=== PATIENT | male | born 1970 | race Hispanic/Latino ===

== ENCOUNTER 2019-10-26 14:57 | Emergency (ER) | payer BC ==
--- OUTSIDE RECORDS SUMMARY | 2019-10-26 14:59 | XMS REPORT | Clinical Summary ---
:1970 Author Organization [facility] Address [address] [place] [id number] Care Team Providers Name Role Phone Asked, Pcp Primary Care Provider Unavailable Allergies No Known Allergies Medications Medication Sig Dispensed Refills Start Date End Date Status olmesartan 0 11/02/2017 Active (BENICAR) 40 MG tablet zolpidem (AMBIEN) 0 11/02/2017 A ctive 10 mg tablet MULTIVITAMIN ORAL Take by 0 Ac tive mouth. meloxicam (MOBIC) TAKE 1 30 tablet 2 11/09/2018 A ctive 15 mg TABLET BY tabletIndications: MOUTH EVERY Labral tear of DAY shoulder, left, initial encounter meloxicam (MOBIC) TAKE 1 30 tablet 1 06/17/2018 D iscontinued 15 mg TABLET BY 9 (Reorder) tabletIndications: MOUTH EVERY Labral tear of DAY shoulder, left, initial encounter Active Problems Problem Noted Date Impingement syndrome of left shoulder 11/30/2017 Overview: Added automatically from request for noelle humberto [id number] Glenoid labrum tear 11/30/2017 Overview: Added automatically from request for noelle humberto [id number] Encounters Date Type Specialty Care Team Description 11/09/2018 Refill Orthopedic Surgery Junior Donnelly MD La bral tear of shoulder, left, initial e ncounter after 10/25/2018 Family History Medical History Relation Name Comments Hypertension Father Hypertension Mother Relation Name Status Comments Father Alive Mother Other siblings Alive Social History Tobacco Use Types Packs/Day Years Used Date Never Smoker Smokeless Tobacco: Never Used Alcohol Use Drinks/Week oz/Week Comments Yes 5 Cans of beer Sex Assigned at Date Recorded Not on file Job Start Date Occupation Industry Not on file Not on file Not on file Travel History Travel Start Travel End No recent travel history available. Last Filed Vital Signs Not on file Plan of Treatment Health Maintenance Due Date Last Done Comments INFLUENZA VACCINE 11/07/2019 12/10/2017 Results Not on fileafter 10/25/2018 ([facility]) [place] [address] Advance Directives For more information, please contact: [phone] Type Date Recorded Patient [employer] Explanati on Advance Directives, Living Will 12/08/2017 9:24 AM and Medical Power of Director Workforce Management
[2019-10-26 15:50] LABS: Urine Blood 3+ (NEG); Urine Glucose NEGATIVE (NEG); Urine Protein NEGATIVE (NEG); Urine Specific Gravity 1.025 (1.005-1.030); Urine pH 5.5 (5.0-7.0)
[2019-10-26] MEDS ORDERED: ONDANSETRON 4 MG/2 ML VIAL ONE (15:56)
[2019-10-26] MEDS ORDERED: KETOROLAC 30 MG/ML INJ ONE (15:57)
[2019-10-26] MEDS ORDERED: NA CHLORIDE 0.9% 1,000 ML ONE (15:57)
[2019-10-26 16:16] LABS: Absolute Lymphocytes (CBC) 2.1 K/uL (0.7-4.9); Basophils % 0.2 % (0-1.3); Hematocrit 43.9 % (39.6-49.0); MPV 8.8 fL (7.6-11.3); RBC Red Blood Cell Count 4.71 M/uL (4.33-5.43)
[2019-10-26] MEDS ORDERED: CEFTRIAXONE/SWI 1gm 1 GM/10 ML SYR ONE (16:29)
--- NOTE | 2019-10-26 16:30 | RAD REPORT ---
EXAM DESCRIPTION: CT - Stone Protocol - 10/26/2019 4:12 pm CLINICAL HISTORY: ABD PAIN COMPARISON: Abdomen Pelvis W Contrast dated 06/03/2016 TECHNIQUE: Axial 3 mm thick images were obtained without oral or IV contrast. The uigpy-hd-pevr span s the entirety of the system including uppermost abdomen and lung bases. All CT scans are performed using dose optimization technique as appropriate and may include automated exposure control or mA/KV adjustment according to patient size. FINDINGS: Mild moderate dilatation of the left renal pelvis with mild dilatation of the left ureter. There is a 3 mm obstructing calculus at the UVJ. Patient has significant perinephric stranding. No o ther obstructing or nonobstructing calculi of either kidney or collecting system. No suspicious renal masses. Isodense masses and pyelonephritis are not excluded on a stone protocol CT scan. No signific ant adrenal finding. Urinary bladder is nearly fully contracted. No gross bladder abnormality seen. P rostate calcifications are present. Liver shows a mild diffuse fatty infiltration pattern with no focal lesion on noncontrast imaging. Sp phong and pancreas show no suspicious findings. Gallbladder is contracted. No biliary tree dilatation. Stones can be occult on CT imaging. No suspicious bowel findings. Appendectomy clips are present. No acute GI findings seen. No mass or bulky lymphadenopathy. Bilateral fat filled inguinal hernias are present. No free air or p neumatosis. Small fat only umbilical hernia present. No significant bony abnormality. Patient has advanced for age degenerative change at the L5-S1 disc l evel. Mild foraminal stenosis changes are present at this level. IMPRESSION: Aonb-rj-czewszdl left-sided hydronephrosis secondary to a 3 mm obstructing calculus at t he UVJ. Additional nonacute findings detailed in the report are similar to the comparison. Isodense masses and pyelonephritis are not excluded on stone protocol technique.
[2019-10-26 16:32] LABS: Bilirubin Direct 0.1 mg/dL (0-0.2); Bilirubin Total 0.5 mg/dL (0.2-1.0); Potassium 4.1 mmol/L (3.5-5.1); Protein, Total 7.2 g/dL (6.4-8.2)
--- NOTE | 2019-10-26 17:14 | EDPHYS ---
Physician Documentation [facility] Name: Stew Garcia Age: 49 yrs Sex: Male : 1970 Arrival Date: 10/26/2019 Time: 15:00 Bed 18 Private MD: TRANG Physician Manolo Yin HPI: 10/25 15:49 This 49 yrs old Male presents to ER via Ambulatory with complaints of Possible franklin Kidney Stone. 15:49 The patient complains of pain in the left low back and left mid back. The pain radiates franklin to the left low back and left mid back. Onset: The symptoms/episode began/occurred this morning. Modifying factors: The symptoms are alleviated by nothing. the symptoms are aggravated by nothing. The patient presents with pain that is acute. The symptoms are located in the left low back and left mid back. Onset: The symptoms/episode began/occurred this morning. Modifying factors: The patient symptoms are alleviated by nothing, the patient symptoms are aggravated by any movement. Historical: - Allergies: 15:20 No Known Allergies; ls4 - Home Meds: 15:20 Benicar Oral [Active]; ls4 - PMHx: 15:20 Hypertension; ls4 - PSHx: 15:20 None; ls4 - Immunization history:: Adult Immunizations up to date. - Social history:: Smoking status: Patient denies any tobacco usage or history of. - Family history:: not pertinent. ROS: 15:49 Constitutional: Negative for fever, chills, and weight loss, Eyes: Negative for injury, franklin pain, redness, and discharge, ENT: Negative for injury, pain, and discharge, Neck: Negative for injury, pain, and swelling, Cardiovascular: Negative for chest pain, palpitations, and edema, Respiratory: Negative for shortness of breath, cough, wheezing, and pleuritic chest pain, Back: Negative for injury and pain, : Negative for injury, bleeding, discharge, and swelling, MS/Extremity: Negative for injury and deformity, Skin: Negative for injury, rash, and discoloration, Neuro: Negative for headache, weakness, numbness, tingling, and seizure, Psych: Negative for depression, anxiety, suicide ideation, homicidal ideation, and hallucinations, Allergy/Immunology: Negative for hives, rash, and allergies, Endocrine: Negative for neck swelling, polydipsia, polyuria, polyphagia, and marked weight changes, Hematologic/Lymphatic: Negative for swollen nodes, abnormal bleeding, and unusual bruising. 15:49 Abdomen/GI: Positive for abdominal pain, of the anterior aspect of left lateral abdomen, posterior aspect of left lateral abdomen, left upper quadrant and left lower quadrant. Exam: 15:49 Constitutional: This is a well developed, well nourished patient who is awake, alert, franklin and in no acute distress. Head/Face: Normocephalic, atraumatic. Eyes: Pupils equal round and reactive to light, extra-ocular motions intact. Lids and lashes normal. Conjunctiva and sclera are non-icteric and not injected. Cornea within normal limits. Periorbital areas with no swelling, redness, or edema. ENT: Nares patent. No nasal discharge, no septal abnormalities noted. Tympanic membranes are normal and external auditory canals are clear. Oropharynx with no redness, swelling, or masses, exudates, or evidence of obstruction, uvula midline. Mucous membranes moist. Neck: Trachea midline, no thyromegaly or masses palpated, and no cervical lymphadenopathy. Supple, full range of motion without nuchal rigidity, or vertebral point tenderness. No Meningismus. Chest/axilla: Normal chest wall appearance and motion. Nontender with no deformity. No lesions are appreciated. Cardiovascular: Regular rate and rhythm with a normal S1 and S2. No gallops, murmurs, or rubs. Normal PMI, no JVD. No pulse deficits. Respiratory: Lungs have equal breath sounds bilaterally, clear to auscultation and percussion. No rales, rhonchi or wheezes noted. No increased work of breathing, no retractions or nasal flaring. Abdomen/GI: Soft, non-tender, with normal bowel sounds. No distension or tympany. No guarding or rebound. No evidence of tenderness throughout. Male : Normal genitalia with no discharge or lesions. Skin: Warm, dry with normal turgor. Normal color with no rashes, no lesions, and no evidence of cellulitis. MS/ Extremity: Pulses equal, no cyanosis. Neurovascular intact. Full, normal range of motion. Neuro: Awake and alert, GCS 15, oriented to person, place, time, and situation. Cranial nerves II-XII grossly intact. Motor strength 5/5 in all extremities. Sensory grossly intact. Cerebellar exam normal. Normal gait. Psych: Awake, alert, with orientation to person, place and time. Behavior, mood, and affect are within normal limits. 15:49 Back: pain, that is moderate, ROM is normal, normal spinal alignment noted, CVA tenderness, that is mild, vertebral tenderness, is not appreciated, muscle spasm, is not present. Vital Signs: 15:19 BP 194 / 101; Pulse 66; Resp 18; Temp 98.4(TE); Pulse Ox 98% on R/A; Weight 115.67 kg; ls4 Height 5 ft. 10 in. (177.80 cm) (R); Pain 10/10; 15:59 BP 182 / 99; jr10 16:30 BP 176 / 103; jr10 17:25 BP 158 / 97; Pulse 64; Resp 18; Pulse Ox 98% on R/A; Pain 0/10; jr10 15:19 Body Mass Index 36.59 (115.67 kg, 177.80 cm) ls4 MDM: 15:13 Patient medically screened. franklin 15:54 Differential diagnosis: UTI, diverticulitis, pancreatitis, Cholelithiasis chronic back franklin pain, Hydronephrosis Obesity Pyelonephritis Ureterolithiasis. Data reviewed: vital signs, nurses notes, lab test result(s), radiologic studies, CT scan. Data interpreted: deputy editor in chief: not applicable for this patient encounter. Pulse oximetry: on room air is 98 %. Counseling: I had a detailed discussion with the patient and/or guardian regarding: the historical points, exam findings, and any diagnostic results supporting the discharge/admit diagnosis, lab results, radiology results. 16:05 ED course: pain controlled. franklin 17:13 ED course: 3 mm uvj, moderate hydro. [facility] 10/25 15:38 Order name: Urine Dipstick--Ancillary (enter results); Complete Time: 16:10 eb 10/25 15:47 Order name: Basic Metabolic Panel; Complete Time: 17:12 franklin 10/25 15:47 Order name: CBC with Diff; Complete Time: 17:12 franklin 10/25 15:47 Order name: Hepatic Function; Complete Time: 17:12 franklin 10/25 15:47 Order name: Lipase; Complete Time: 17:12 franklin 10/25 15:48 Order name: CT Stone Protocol; Complete Time: 17:12 franklin 10/25 15:47 Order name: IV Saline Lock; Complete Time: 15:55 [facility] 10/25 15:47 Order name: Labs collected and sent; Complete Time: 15:55 [facility] Administered Medications: 15:52 Drug: Zofran (Ondansetron) 4 mg Route: IVP; Site: right antecubital; jr10 16:14 Follow up: Response: No adverse reaction jr10 17:25 Follow up: Response: No adverse reaction jr10 15:54 Drug: NS 0.9% 1000 ml Route: IV; Rate: 1 bolus; Site: right antecubital; jr10 17:26 Follow up: Response: No adverse reaction; IV Status: Completed infusion jr10 15:54 Drug: TORadol 30 mg Route: IVP; Site: right forearm; jr10 16:15 Follow up: Response: No adverse reaction; Pain is decreased jr10 16:30 Drug: Rocephin 1 grams Route: IV; Rate: per protocol; Site: right antecubital; jr10 17:25 Follow up: Response: No adverse reaction jr10 17:26 Not Given (Patient Refused; pt reports pain free after toradol): Dilaudid 1 mg IVP jr10 once; RASS on ADMIN: Combtv4, Very Agttd3, Agttd2, Rstlss1, AlertClm0, Drwsy-1, Lt Sdtn-2, Mod Sdtn-3, Dp Sdtn-4, UnArsble-5 Disposition: 10/26/19 17:13 Discharged to Home. Impression: Hydronephrosis with renal and ureteral calculous obstruction. - Condition is Stable. - Discharge Instructions: Kidney Stones, Kidney Stones, Hdqi-cn-Auxt, Hydronephrosis, Dietary Guidelines to Help Prevent Kidney Stones. - Prescriptions for Tylenol- Codeine #3 300-30 mg Oral Tablet - take 2 tablet by ORAL route every 6 hours As needed; 30 tablet. Zofran 4 mg Oral Tablet - take 1 tablet by ORAL route every 12 hours As needed; 20 tablet. Flomax 0.4 mg Oral Capsule, Sust. Release 24 hr - take 1 capsule by ORAL route once daily 1/2 hour following the same meal each day; 30 capsule. Cipro 500 mg Oral Tablet - take 1 tablet by ORAL route every 12 hours for 7 days; 14 tablet. - Medication Reconciliation Form, Thank You Letter, Antibiotic Education, Prescription Opioid Use form. - Follow up: Private Physician; When: 2 - 3 days; Reason: Recheck today's complaints, Continuance of care, Re-evaluation by your physician. Follow up: Boom Ibarra; When: 2 - 3 days; Reason: Recheck today's complaints, Re-evaluation by your physician. - Problem is new. - Symptoms have improved. Signatures: Dispatcher [employer] EDManolo Egan MD MD cha Stewart, Lisa RN RN ls4 Pily Senior RN RN jr10 Corrections: (The following items were deleted from the chart) 17:28 17:13 10/26/2019 17:13 Discharged to Home. Impression: Hydronephrosis with renal and jr10 ureteral calculous obstruction. Condition is Stable. Discharge Instructions: Kidney Stones, Kidney Stones, Yamk-pk-Sezy, Hydronephrosis, Dietary Guidelines to Help Prevent Kidney Stones. Prescriptions for Tylenol-Codeine #3 300-30 mg Oral Tablet - take 2 tablet by ORAL route every 6 hours As needed; 30 tablet, Zofran 4 mg Oral Tablet - take 1 tablet by ORAL route every 12 hours As needed; 20 tablet, Flomax 0.4 mg Oral Capsule, Sust. Release 24 hr - take 1 capsule by ORAL route once daily 1/2 hour following the same meal each day; 30 capsule, Cipro 500 mg Oral Tablet - take 1 tablet by ORAL route every 12 hours for 7 days; 14 tablet. and Forms are Medication Reconciliation Form, Thank You Letter, Antibiotic Education, Prescription Opioid Use. Follow up: Private Physician; When: 2 - 3 days; Reason: Recheck today's complaints, Continuance of care, Re-evaluation by your physician. Follow up: Boom Ibarra; When: 2 - 3 days; Reason: Recheck today's complaints, Re-evaluation by your physician. Problem is new. Symptoms have improved. franklin
--- NOTE | 2019-10-26 17:14 | ER ---
Nurse's Notes [facility] Name: Stew Garcia Age: 49 yrs Sex: Male : 1970 Arrival Date: 10/26/2019 Time: 15:00 Bed 18 Private MD: Diagnosis: Hydronephrosis with renal and ureteral calculous obstruction Presentation: 10/25 15:19 Chief complaint: Patient states: LEFT FLANK PAIN BEGAN THIS MORNING. MARTA HAD STONES 3 ls4 TIMES BEFORE. Coronavirus screen: At this time, the client does not indicate any symptoms associated with coronavirus-19. Ebola Screen: No symptoms or risks identified at this time. Initial Sepsis Screen: Does the patient meet any 2 criteria? No. Patient's initial sepsis screen is negative. Does the patient have a suspected source of infection? No. Patient's initial sepsis screen is negative. Risk Assessment: Do you want to hurt yourself or someone else? Patient reports no desire to harm self or others. Onset of symptoms was October 26, 2019 at 08:00. 15:19 Method Of Arrival: Ambulatory ls4 15:19 Acuity: ALCIRA 3 ls4 15:26 Care prior to arrival: None. Activity prior to arrival: None. ls4 Triage Assessment: 15:20 General: Appears uncomfortable, Behavior is cooperative. Pain: Complains of pain in ls4 left low back and left mid back Pain currently is 10 out of 10 on a pain scale. Historical: - Allergies: 15:20 No Known Allergies; ls4 - Home Meds: 15:20 Benicar Oral [Active]; ls4 - PMHx: 15:20 Hypertension; ls4 - PSHx: 15:20 None; ls4 - Immunization history:: Adult Immunizations up to date. - Social history:: Smoking status: Patient denies any tobacco usage or history of. - Family history:: not pertinent. Screenin:22 Abuse screen: Denies threats or abuse. Denies injuries from another. Nutritional ls4 screening: No deficits noted. Tuberculosis screening: No symptoms or risk factors identified. Fall Risk None identified. Assessment: 15:45 General: Appears uncomfortable, Behavior is restless. Pain: Complains of pain in left jr10 flank Pain began this morning. Neuro: No deficits noted. Cardiovascular: No deficits noted. Respiratory: No deficits noted. GI: Abdomen is non-distended, Bowel sounds present X 4 quads. Abd is soft and non tender X 4 quads. Patient currently denies nausea, vomiting. : Reports pain in left flank(s), urgency, urinary frequency, hematuria. EENT: No deficits noted. No signs and/or symptoms were reported regarding the EENT system. Derm: No deficits noted. No signs and/or symptoms reported regarding the dermatologic system. Musculoskeletal: No deficits noted. No signs and/or symptoms reported regarding the musculoskeletal system. Vital Signs: 15:19 BP 194 / 101; Pulse 66; Resp 18; Temp 98.4(TE); Pulse Ox 98% on R/A; Weight 115.67 kg; ls4 Height 5 ft. 10 in. (177.80 cm) (R); Pain 10/10; 15:59 BP 182 / 99; jr10 16:30 BP 176 / 103; jr10 17:25 BP 158 / 97; Pulse 64; Resp 18; Pulse Ox 98% on R/A; Pain 0/10; jr10 15:19 Body Mass Index 36.59 (115.67 kg, 177.80 cm) ls4 ED Course: 15:00 Patient arrived in ED. ds1 15:10 Manolo Yin MD is Attending Physician. franklin 15:20 Triage completed. ls4 15:21 Arm band placed on. ls4 15:35 Inserted saline lock: 22 gauge in right antecubital area, using aseptic technique. jr10 Blood collected. IV is patent, is intact, with good blood return, Flushed. 15:44 Pily Senior, CATRINA is Primary Nurse. jr10 15:45 Patient has correct armband on for positive identification. Bed in low position. Call jr10 light in reach. Side rails up X 1. Pulse ox on. NIBP on. 15:51 Initial lab(s) drawn, by me, sent to lab. jr10 16:02 No provider procedures requiring assistance completed. jr10 16:12 CT Stone Protocol In Process Unspecified. EDMS 17:13 Boom Ibarra MD is Referral Physician. franklin 17:28 IV discontinued, intact, bleeding controlled, No redness/swelling at site. Pressure jr10 dressing applied. Administered Medications: 15:52 Drug: Zofran (Ondansetron) 4 mg Route: IVP; Site: right antecubital; jr10 16:14 Follow up: Response: No adverse reaction jr10 17:25 Follow up: Response: No adverse reaction jr10 15:54 Drug: NS 0.9% 1000 ml Route: IV; Rate: 1 bolus; Site: right antecubital; jr10 17:26 Follow up: Response: No adverse reaction; IV Status: Completed infusion jr10 15:54 Drug: TORadol 30 mg Route: IVP; Site: right forearm; jr10 16:15 Follow up: Response: No adverse reaction; Pain is decreased jr10 16:30 Drug: Rocephin 1 grams Route: IV; Rate: per protocol; Site: right antecubital; jr10 17:25 Follow up: Response: No adverse reaction jr10 17:26 Not Given (Patient Refused; pt reports pain free after toradol): Dilaudid 1 mg IVP jr10 once; RASS on ADMIN: Combtv4, Very Agttd3, Agttd2, Rstlss1, AlertClm0, Drwsy-1, Lt Sdtn-2, Mod Sdtn-3, Dp Sdtn-4, UnArsble-5 Outcome: 17:13 Discharge ordered by MD. reid 17:28 Discharged to home ambulatory. jr10 17:28 Condition: improved 17:28 Discharge instructions given to patient, Instructed on discharge instructions, follow up and referral plans. Demonstrated understanding of instructions, follow-up care, medications, Prescriptions given X 4. 17:28 Patient left the ED. jr10 Signatures: Dispatcher [employer] Manolo Villegas MD MD cha Sanford, Demi ds1 Bonita Chen, RN RN ls4 Pily Senior RN RN jr10
[2019-10-26 17:35] VITALS: TEMP 98.4; O2SAT 98
[2019-10-26 17:38] VITALS: BP 158/97
== END 2019-10-26 17:28 | disposition home or self-care (01) ==
LOC: ER 14:57
DX: N13.2 Hydronephrosis with renal and ureteral calculous obstruction (principal); I10 Essential (primary) hypertension
CPT/HCPCS: 85025; 80048; 36415; 80076; 81003; 83690; 76377; 74176; 99284; J0696; J7030; J2405

== ENCOUNTER 2020-10-28 08:26 | Day surgery (SDC) | payer BC ==
--- NOTE | 2020-10-28 08:33 | RAD REPORT ---
EXAM DESCRIPTION: RAD - Chest Pa And Lat (2 Views) - 10/28/2020 8:25 am CLINICAL HISTORY: preop COMPARISON: No comparisons FINDINGS: No evidence of edema or pneumonia. The heart size is within normal limits.No acute osseous abnormality. No significant pleural effusions or pneumothorax. IMPRESSION: No acute cardiopulmonary disease.
[2020-10-28 08:39] LABS: Potassium 3.9 mmol/L (3.5-5.1)
[2020-10-28 08:46] LABS: Absolute Lymphocytes (CBC) 2.6 K/uL (0.7-4.9); Basophils % 0.2 % (0-1.3); Hematocrit 43.1 % (39.6-49.0); Lymphocytes % 45.3 % (15.3-44.8); MPV 7.4 fL (7.6-11.3); RBC Red Blood Cell Count 4.72 M/uL (4.33-5.43)
[2020-10-28] MEDS ORDERED: Ringers Lactate 1,000 ML IV ONE (09:12)
[2020-10-28] MEDS ORDERED: CEFOXITIN/SWI 1gm 1 GM/10 ML SYR ONE (09:13)
[2020-10-28] MEDS ORDERED: BUPIVACAINE 0.25% PF 10 ML VIAL ONE (09:16)
[2020-10-28] MEDS ORDERED: LIDOCAINE 1% MPF 30 ML VIAL ONE (09:56)
[2020-10-28] MEDS ORDERED: propofoL 200 MG/20 ML VIAL IV ONE ×2 (09:56→10:08)
[2020-10-28] MEDS ORDERED: MIDAZOLAM HCL 2 MG/2 ML INJ ONE (09:56)
[2020-10-28] MEDS ORDERED: ONDANSETRON 4 MG/2 ML VIAL ONE ×2 (09:56→10:46)
[2020-10-28] MEDS ORDERED: FENTANYL CITR 100 MCG/2 ML ONE ×2 (09:59→10:32)
[2020-10-28] MEDS ORDERED: KETOROLAC 30 MG/ML INJ ONE (10:38)
[2020-10-28] MEDS ORDERED: dexAMETHasone 10 MG/ML VIAL ONE (10:38)
[2020-10-28 11:44] VITALS: BP 124/78; TEMP 97.3; O2SAT 99
[2020-10-28] MEDS ORDERED: HYDROCODONE/APAP 7.5/325 MG TAB ONE (11:48)
--- NOTE | 2020-10-28 12:19 | OP ---
Date of Procedure: 10/28/2020 Surgeon: Ilia Steele MD [employer] Specialist: Jamey Adame, rn surgical pcu. Preoperative Diagnosis: Symptomatic hemorrhoids. Postoperative Diagnosis: Symptomatic hemorrhoids with external hemorrhoids x4. Procedures Performed: Exam under anesthesia, rigid proctoscopy, and hemorrhoidectomy x4. Estimated Blood Loss: Minimal. Specimen: External hemorrhoids x4. Finding: As above. Anesthesia: General. Complications: None. Disposition: The patient tolerated the procedure in stable condition and taken to Recovery in good g eneral condition. Procedure In Detail: The patient was brought to the OR and placed in supine position. General anest hesia begun. The patient was prepped and draped in the usual sterile fashion in lithotomy position. Exam under anesthesia revealed 4 external hemorrhoids protruding and they had small clots in them, w hich was visible and rigid proctoscopy did not show any evidence of internal hemorrhoids or any other evidence of disease. Marcaine 0.5% was infiltrated locally around the anus and then a Harmonic Scal pel was used to excise all 4 hemorrhoids and sent to Pathology after being appropriately labeled. Bl eeding controlled with cautery and then rectal pack consisting of Gelfoam, Surgicel, Vaseline guaze p laced in the anal canal. Sterile dressing applied. The patient was awakened and taken to Recovery i n good general condition. Discharge Note: The patient will go to Day Surgery and home when stable. Disposition: Home. Condition: Stable. Discharge Instructions: Resume home medications and diet. Activity as tolerated. No heavy lifting. Remove outer dressing in a.m. Sitz baths q.i.d. High-fiber diet. Colace 100 mg p.o. b.i.d., [place] mucil 1 tablespoon p.o. t.i.d., sitz baths q.i.d. and after bowel movement and Procto-HC 2.5% to anus b.i.d. and p.r.n. Tylenol No.3 one tablet p.o. q.4 p.r.n. pain. /MODL Voice ID: [id number] Report ID: [id number]
== END 2020-10-28 11:52 | disposition home or self-care (01) ==
LOC: OR 08:26
PROVIDERS: ATTEND Surgery
PROC: 0DJD8ZZ Inspection of Lower Intestinal Tract, Via Natural or Artificial Opening Endoscopic (ICD-10-PCS; 2020-10-28)
PROC: 06BY0ZC Excision of Hemorrhoidal Plexus, Open Approach (ICD-10-PCS; principal; 2020-10-28 09:45)
DX: K64.8 Other hemorrhoids (principal); Z20.822 Contact with and (suspected) exposure to COVID-19
CPT/HCPCS: 46250; 45300; 85025; 80048; 36415; 88304; 71046; U0003; J2704; J2250; J3010 ×2; J1100; J7120; J2405 ×2